=== PATIENT | male | born 1955 | race Two or more races ===

== ENCOUNTER 2025-01-26 22:57 | Emergency (ER) | payer OTHER ==
[~2025-01-26] VITALS: Ht 172.7 cm; Wt 136.3 kg
[2025-01-26] MEDS ORDERED: EPINEPHrine HCL 1 MG/10 ML SYRG IV ONE (22:58)
[2025-01-26] MEDS ORDERED: SODIUM BICARB 8.4% 50Meq/50ml SYR INJ IV ONE (22:58)
[2025-01-26 23:05] VITALS: TEMP 98.5
--- NOTE | 2025-01-26 23:18 | ED.PDOC ---
CPR-HPI HPI Comments 69 year old male presents to the ED vis EMS as a Code Blue. Per EMS personnel patient was last seen by daughter at 1400. He was found unresponsive by daughter at 2200. EMS arrived on scene 2210. Patient was found pulseless, apneic and with asystolic rhythm. ACLS protocols were intiated by EMS. Supraglottic airway was placed by EMS. Patient received 6 rounds of epinephrine, 1 dose of sodium bicarbonate and one dose of calcium prior to arrival. Patient remained in asystole. Patient arrived to the ED at 2256 and ACLS protocols were continued by ED staff. REVIEW OF SYSTEMS: Unable to obtain PHYSICAL EXAM: VS (Temp 98.5 rectally) General: Patient is unresponsive HEENT: Pupils fixed, dilated, nonreactive. There is no corneal reflex. Cardiac: No heart sounds auscultated, no pulses palpated Abdomen: Soft, mildly distended Respiratory: No spontaneous respirations, no breath sounds auscultated Neuro: GCS 3, patient is unresponsive to painful stimulus, Chief Complaint: CPR Time Seen by MD: 23:08 Allergies: Coded Allergies: No Known Drug Allergy (Verified Allergy, Unknown, 01/26/25) Was a procedure done? Was a procedure done?: No Differential Dx CPR Differential Diagnosis: Cardiopulmonary arrest, Cardiac Tamponade, Cardiogenic shock, Dysrhythmia, Electrolyte disorder, Heart Block, Myocardial Infarction, Pneumothorax, Pulmonary Embolus, Respiratory Failure, Ruptured Aortic Aneurysm, Other X-Ray, Labs, Meds, VS Vital Signs Date Time Temp Pulse Resp B/P (MAP) Pulse Ox O2 Delivery O2 Flow Rate FiO2 01/27/25 01:49 0 0 Ambu-Bag 0 01/26/25 23:05 98.5 98.5 01/26/25 22:58 Mechanical Ventilator+ 70 100 100 Time of 1ST Reevaluation: 23:06 Reevaluation 1ST: Unchanged Patient Education/Counseling: Pt Unresponsive Family Education/Counseling: Other SEPSIS Sepsis Screen Vital Signs Date Time Temp Pulse Resp B/P (MAP) Pulse Ox O2 Delivery O2 Flow Rate FiO2 01/27/25 01:49 0 0 Ambu-Bag 0 01/26/25 23:05 98.5 98.5 01/26/25 22:58 Mechanical Ventilator+ 70 100 100 Departure 1 Departure Time of Disposition: 23:06 Impression: Primary Impression: Cardiac arrest Disposition: 20 Condition: Other Comments 69 year old male arrived to the ED via EMS in cardiac arrest. Cardiac compressions were performed by staff in order to sustain blood flow. The patient was ventilated and oxygenated. The patient received appropriate ACLS measures and these were repeated as necessary throughout the resuscitation. CPR was performed under my direct supervision and guidance. Patient's BGC was 321. Patient remained in asystole. No cardiac activity was noted on bedside ultrasound. See patient resuscitation status note for medications and times given. After discontinuation of resuscitation, I did not observe spontaneous breathing or appreciate heart sounds on auscultation. There was no palpable radial pulse. The patient did not respond to nail bed stimuli. I examined the patient and there was no pupillary response to light. Patient was pronounced . TOD: 2307 Family members were notified that the patient . Critical Care Note Critical Care Time?: No Heart Score Heart Score: Heart Score Response (Comments) Value History N/A 0 EKG N/A 0 Age N/A 0 Risk Factors N/A 0 Troponin N/A 0 Total 0 Stability Stability form required: No CLARA JOHNSON MD Jan 26, 2025 23:18
--- NOTE | 2025-01-27 01:49 | RESUS ---
CODE BLUE ASSESSSMENT History of Events History of Events: Pt BIBA with manual CPR in progress. Per EMS, pt found by daughter at 2200 to be unresponsive. Pt was last seen well at 1400 when daughter left the home. Daughter called 911 with bystander CPR started. Upon arrival, pt found to be asystole. IO initiated to L proximal tibia with Epi x6 rounds given (last given at 2255), 1 amp of sodium bicarb, and 10mL calcium chloride. Zia airway in place upon arrival to ER. Initial Information Time: 22:56 Location of Arrest: In Field Arrest Witnessed: No CPR started initial time: 22:05 CPR started by whom: Bystander (Pt's daughter) Last seen well: 1400 Pre-Hospital Care: ACLS Type of arrest: Cardiac, Respiratory, Adult, Unwitnessed Spontaneous Respirations: No Pulse Present: No Monitoring: ECG, Pulse Oximetry, Telemetry Crash Cart Opened and Supplies: Yes Airway Ventilation Breathing at Onset: Assisted Oxygen Delivery Method: Ambu-Bag (attached to zia airway placed by EMS) Time of first Assisted Ventila: 22:56 Artificial Ventilation: Bag/Mask Comments: Pt was not intubated during code Circulation Circulation #1: Time: 22:56 Pulse Rate (adult): 0 Blood Pressure Systolic: 0 Blood Pressure Diastolic: 0 Temperature (Fahrenheit): 95.5 (F; rectal) Circulation #2: Time: 22:58 Pulse Rate (adult): 0 Blood Pressure Systolic: 0 Blood Pressure Diastolic: 0 Circulation Comment: PEA Circulation #3: Time: 23:00 Pulse Rate (adult): 0 Blood Pressure Systolic: 0 Blood Pressure Diastolic: 0 Circulation Comment: Asystole Circulation #4: Time: 23:02 Pulse Rate (adult): 0 Blood Pressure Systolic: 0 Blood Pressure Diastolic: 0 Circulation Comment: Asystole Circulation #5: Time: 23:04 Pulse Rate (adult): 0 Blood Pressure Systolic: 0 Blood Pressure Diastolic: 0 Circulation Comment: Asystole Circulation #6: Time: 23:06 Pulse Rate (adult): 0 Blood Pressure Systolic: 0 Blood Pressure Diastolic: 0 Circulation Comment: Asystole; TOD Procedure - IV Procedure - IV : IV start time: 23:01 IV Side: Left IV Location: Antecubital IV Catheter Type: Saline Lock IV Placed: In Hospital IV Placed by Jody JOY LVN IV Gauge: 20 IV Line Care: Saline Flush Medications & Response Medications and Responses #1: Medication Time: 23:00 ADULT Medications Given ADULT: Epinephrine 1 mg, Sodium Bacarbinate 50 meq Route of Administration: IO Heart Rate: 0 EKG Rhythm: Asystole Blood Pressure Systolic: 0 Blood Pressure Diastolic: 0 Respiratory Rate: 0 Medications and Responses #2: Medication Time: 23:04 ADULT Medications Given ADULT: Epinephrine 1 mg Route of Administration: IV Heart Rate: 0 EKG Rhythm: Asystole Blood Pressure Systolic: 0 Blood Pressure Diastolic: 0 Respiratory Rate: 0 Nurses Notes [place] Coma Scale Eye Opening: None (1) [place] Coma Scale Verbal: None (1) [place] Coma Scale Motor: None (1) [place] Total: 3 Pupil Reaction: Non Reactive Bedside Blood Glucose: 321 Time Code Ended Time Code Ended: 23:06 Post Arrest Status: Outcome of code: Unsuccessful Patient pronounced by: Dr Esposito Time patient pronounced: 23:06 Family notified: Yes Attending called: Yes Code Team Present: Dr Esposito - ER MD; Paul Collins RN - ER Charge; Louisa Grimaldo RN - Electrical Discharge Machine Operator; Trish Cartwright, RT; Brenda Oconnor, RN; Sammie Aguilera, RN; Jody JOY, CERTIFIED DETENTION DEPUTY; Keturah T, ERT; Guille Hernández, ERT; Michael Cartwright, EMT Student; Sangita Rawls, EMT Student Louisa Pedersno Jan 27, 2025 01:49
== END 2025-01-26 23:06 ==
LOC: EDBD 22:57 → ER 22:57
DX: I46.9 Cardiac arrest, cause unspecified (principal)
CPT/HCPCS: 82947; 92950; 99285; J0169